=== PATIENT | male | born 1960 | race Caucasian/White ===

== ENCOUNTER 2021-08-04 14:56 | Emergency (ER) | payer SELFPAY ==
[2021-08-04] MEDS ORDERED: Bupivacaine 0.25% 10 ML SDV INJECT ONE (15:05)
[2021-08-04] MEDS ORDERED: Lidocaine 1% 30 ML SDV ONE (15:30)
[2021-08-04] MEDS ORDERED: Lidocaine 1% 30 ML SDV INJECT ONE (15:33)
[2021-08-04] MEDS ORDERED: Bacitracin Oint 1 GM U/D Packet ONE (15:51)
--- NOTE | 2021-08-04 15:57 | EDM.PDOC ---
ED HPI GENERAL MEDICAL PROBLEM - General Chief Complaint: Laceration Stated Complaint: CUT FINGER Time Seen by Provider: 08/04/21 15:16 - History of Present Illness INITIAL COMMENTS - FREE TEXT/NARRATIVE: 61 y/o M c/o finger pain R 2nd finger after cutting his finger with a kitchen knife on night. Pt put a tight bandage on the finger and noticed today the pain was worse and the finger was still bleeding profusley. No blood thinners. Pn is 9/10. Pt believes he may have wrapped jenanine finger too tight which is why it continued to bleed. No other injuries, fever, chills, loc. right second digit Pain Score (Numeric/FACES): 7 - Related Data Allergies Allergy/AdvReac Type Severity Reaction Status Date / Time No Known Allergies Allergy Verified 08/04/21 15:17 Home Meds: Home Meds . [Unable to Verify Home Med List] 08/04/21 [History] Past Medical History Cardiovascular History: Reports: High Cholesterol, Hypertension Respiratory History: Reports: None Gastrointestinal History: Reports: GERD Genitourinary History: Reports: None Musculoskeletal History: Reports: None Neurological History: Reports: None Psychiatric History: Reports: None Endocrine/Metabolic History: Reports: None Hematologic History: Reports: None Immunologic History: Reports: None Oncologic (Cancer) History: Reports: None Dermatologic History: Reports: None - Infectious Disease History Infectious Disease History: Reports: None - Past Surgical History Cardiovascular Surgical History: Reports: None Social & Family History - Family History Family Medical History: No Pertinent Family History - Tobacco Use Tobacco Use Status *Q: Never Tobacco User Second Hand Smoke Exposure: No - Caffeine Use Caffeine Use: Reports: None - Recreational Drug Use Recreational Drug Use: No ED ROS GENERAL - Review of Systems Review Of Systems: Comprehensive ROS is negative, except as noted in HPI. ED EXAM, SKIN/RASH Exam: See Below Exam Limited By: No Limitations General Appearance: Alert, WD/WN, No Apparent Distress Respiratory/Chest: No Respiratory Distress, Lungs Clear, Normal Breath Sounds, No Accessory Muscle Use Cardiovascular: Normal Peripheral Pulses, Regular Rate, Rhythm, No Edema, No Gallop GI/Abdominal: Soft, Non-Tender Extremities: Other (2cm full thickness lac distal tip of 2nd finger R hand.) Neurological: Alert, Oriented, CN II-XII Intact, Normal Cognition, Normal Gait, Normal Reflexes, No Motor/Sensory Deficits Psychiatric: Normal Affect, Normal Mood Skin: Warm, Dry Lymphatic: No Adenopathy ED SKIN PROCEDURES - Laceration/Wound Repair Right Distal Digit - 2nd (Index) Appearance: Subcutaneous Anesthetic Type: Local Local Anesthesia - Lidocaine (Xylocaine): 1% Plain Local Anesthesia - Bupivicaine (Marcaine): 0.25% Plain Local Anesthetic Volume: 5cc Skin Prep: Saline Closed with: Sutures Lac/Wound length In cm: 2 Suture Size: 4-0 # of Sutures: 3 Suture Type: Interrupted Course - Vital Signs Last Recorded V/S: Last Vital Signs Temp 98.7 F 08/04/21 15:11 Pulse 75 08/04/21 15:11 Resp 18 08/04/21 15:11 BP 175/116 H 08/04/21 15:11 Pulse Ox 96 08/04/21 15:11 - Orders/Labs/Meds Meds: Medications Discontinued Medications Generic Name Dose Route Start Last Admin Trade Name Freq PRN Reason Stop Dose Admin Bacitracin Confirm 08/04/21 15:51 08/04/21 16:28 Bacitracin Oint 1 Gm U/D Packet Administered 08/04/21 15:52 1 dose Dose Administration 1 dose .ROUTE .STK-MED ONE Bupivacaine HCl 10 ml 08/04/21 15:05 08/04/21 15:10 Bupivacaine 0.25% 10 Ml Sdv INJECT 08/04/21 15:06 10 ml ONETIME ONE Administration Lidocaine HCl Confirm 08/04/21 15:30 08/04/21 16:26 Lidocaine 1% 30 Ml Sdv Administered 08/04/21 15:31 Not Given Dose 30 ml .ROUTE .STK-MED ONE Lidocaine HCl 30 ml 08/04/21 15:33 08/04/21 16:28 Lidocaine 1% 30 Ml Sdv INJECT 08/04/21 15:34 30 ml ONETIME ONE Administration Departure - Departure Time of Disposition: 16:31 Disposition: Home, Self-Care 01 Condition: Good Clinical Impression: Finger laceration Qualifiers: Encounter type: initial encounter Finger: index finger Damage to nail status: with damage Foreign body presence: without foreign body Laterality: right Qualified Code(s): S61.310A - Laceration without foreign body of right index finger with damage to nail, initial encounter - Discharge Information *PRESCRIPTION DRUG MONITORING PROGRAM REVIEWED*: Not Applicable *COPY OF PRESCRIPTION DRUG MONITORING REPORT IN PATIENT SAMANTHA: Not Applicable Forms: ED Department Discharge Additional Instructions: see downtime charting Sepsis Event Note (ED) - Evaluation Sepsis Screening Result: No Definite Risk - Focused Exam Vital Signs: Vital Signs Temp Pulse Resp BP Pulse Ox 08/04/21 15:11 98.7 F 75 18 175/116 H 96
== END 2021-08-04 16:03 | disposition home or self-care (01) ==
LOC: DL.ED 14:56
DX: S61.310A Laceration without foreign body of right index finger with damage to nail, initial encounter (principal); I10 Essential (primary) hypertension; W26.0XXA Contact with knife, initial encounter; Y92.000 Kitchen of unspecified non-institutional (private) residence as the place of occurrence of the external cause
CPT/HCPCS: 12001; 99282; J3490